=== PATIENT | male | born 1970 | race Caucasian/White ===

== ENCOUNTER 2019-09-29 08:23 | Outpatient (CLI) | payer OTHER, SELFPAY ==
--- NOTE | 2019-09-29 | EST_ITS ---
Patient Info Name: Paul Huang Age: 49 years : 1970 Gender: Male Ht: 72 in Wt: 230 lbs BSA: 2.33 m2 Exam Date: 09/29/2019 8:59 AM Exam Location: [facility] Stress Patient Status: Outpatient Admit Date: 09/29/2019 Staff Ordering Physician: Rogers, Philip Amaya MD Attending Provider: Rogers, Philip Amaya MD Exercise Technologist: Madiha Pino RDCS Nurse: Misti Solomon ANP, ACNP-BC Exam Type: CA stress test treadmill Study Info A treadmill exercise stress test was performed. Summary 1. Normal sinus rhythm - normal ECG. 2. No abnormal ST/T wave changes with exercise. 3. Clinically and electrocardiographically negative exercise stress test at 106% of maximum age predicted heart rate. Protocol: [facility] Stress ECG Details Stage: REST Duration (min): 10 min : 13 sec Speed (mph): 0.0 Grade (%): 0 HR (bpm): 73 SBP (mmHg): 115 DBP (mmHg): 75 METS: --- Stage: REST Duration (min): 16 min : 56 sec Speed (mph): 0.0 Grade (%): 0 HR (bpm): 65 SBP (mmHg): 115 DBP (mmHg): 75 METS: --- Stage: STAGE 1 Duration (min): 1 min : 0 sec Speed (mph): 1.7 Grade (%): 10 HR (bpm): 107 SBP (mmHg): 115 DBP (mmHg): 75 METS: --- Stage: STAGE 1 Duration (min): 2 min : 0 sec Speed (mph): 1.7 Grade (%): 10 HR (bpm): 104 SBP (mmHg): 115 DBP (mmHg): 75 METS: --- Stage: STAGE 1 Duration (min): 3 min : 0 sec Speed (mph): 1.7 Grade (%): 10 HR (bpm): 108 SBP (mmHg): 162 DBP (mmHg): 85 METS: --- Stage: STAGE 2 Duration (min): 1 min : 0 sec Speed (mph): 2.5 Grade (%): 12 HR (bpm): 122 SBP (mmHg): 162 DBP (mmHg): 85 METS: --- Stage: STAGE 2 Duration (min): 2 min : 0 sec Speed (mph): 2.5 Grade (%): 12 HR (bpm): 130 SBP (mmHg): 166 DBP (mmHg): 92 METS: --- Stage: STAGE 2 Duration (min): 3 min : 0 sec Speed (mph): 2.5 Grade (%): 12 HR (bpm): 131 SBP (mmHg): 166 DBP (mmHg): 92 METS: --- Stage: STAGE 3 Duration (min): 1 min : 0 sec Speed (mph): 3.4 Grade (%): 14 HR (bpm): 146 SBP (mmHg): 225 DBP (mmHg): 72 METS: --- Stage: STAGE 3 Duration (min): 2 min : 0 sec Speed (mph): 3.4 Grade (%): 14 HR (bpm): 158 SBP (mmHg): 203 DBP (mmHg): 81 METS: --- Stage: STAGE 3 Duration (min): 3 min : 0 sec Speed (mph): 3.4 Grade (%): 14 HR (bpm): 164 SBP (mmHg): 193 DBP (mmHg): 67 METS: --- Stage: STAGE 4 Duration (min): 1 min : 0 sec Speed (mph): 4.2 Grade (%): 16 HR (bpm): 175 SBP (mmHg): 193 DBP (mmHg): 67 METS: --- Stage: STAGE 4 Duration (min): 1 min : 23 sec Speed (mph): 4.2 Grade (%): 16 HR (bpm): 180 SBP (mmHg): 193 DBP (mmHg): 67 METS: --- Stage: RECOVERY Duration (min):
== END 2019-09-29 08:24 | disposition home or self-care (01) ==
PROVIDERS: PCP Family Medicine; Visit Provider Family Medicine
DX: R07.89 Other chest pain (principal)
CPT/HCPCS: 93017

== ENCOUNTER 2022-09-04 00:23 | Day surgery (SDC) | payer OTHER, SELFPAY ==
[2022-08-17 13:05] VITALS: BMI 30.7
--- NOTE | 2022-09-03 12:57 | PM.HPGS ---
History of Present Illness History of Present Illness Consent: Risks, benefits, and alternatives have been discussed and questions answered. Patient agrees to proceed with procedure. Chief complaint: neoplasm screening, GERD Narrative: Paul Huang Jr. is a 52 year old male Referred for EGD and colonoscopy. He has chronic acid reflux symptoms, Beginning about 30 years ago. His symptoms are generally controlled with Protonix. He is also in need of colon cancer screening. Review of Systems Review of Systems: All systems reviewed & are unremarkable except as noted in HPI and below PMFSH Past Medical History Medical History GERD (gastroesophageal reflux disease) Hyperlipidemia Obesity Social History Social History Alcohol intake: current Drinks per week: 14 Living arrangements: with family Spiritual care concerns: No Meds Home Medications and Allergies Home Medications Medication Instructions Recorded Confirmed Type atorvastatin 20 mg tablet 20 mg PO DAILY 08/17/22 08/17/22 History pantoprazole 40 mg tablet,delayed 40 mg PO QAM 08/17/22 08/17/22 History release Allergies Allergy/AdvReac Type Severity Reaction Status Date / Time No Known Allergies Allergy Verified 09/04/22 10:38 Exam Const: General: alert Orientation/consciousness: patient oriented x3 Resp: Auscultation: clear to auscultation bilaterally Cardio: Rhythm: regular rhythm GI: GI Palp: Yes Soft to palpation and No Tenderness to palpation present (GI) Neuro: General: patient oriented x3 Assessment and Plan Assessment and plan (1) GERD (gastroesophageal reflux disease): Code(s): K21.9 - Gastro-esophageal reflux disease without esophagitis Status: Acute Assessment and Plan: EGD with possible biopsy or dilatation or cautery. (2) Colon cancer screening: Code(s): Z12.11 - Encounter for screening for malignant neoplasm of colon Status: Acute Assessment and Plan: Colonoscopy with possible biopsy or polypectomy or cautery or injection of substances.
[2022-09-04 10:39] VITALS: BP 133/90; PULSE 78; RESP 18; TEMP 36.2; O2SAT 97
--- NOTE | 2022-09-04 10:41 | P.PNAN_ITS ---
Anes - Initial Pre Proc Eval Procedure: Operation Date: 09/04/22 12:30 Proposed Procedures p Esophagogastroduodenoscopy & Screening Colonoscopy - Umang Wadsworth MD Date/Time: 09/04/22 10:41 Surgeon: Umang Wadsworth MD Pre Op Diagnosis: neoplasm screening, GERD Patient Data Age: 52 Gender: M Height: 1.8 m Weight: 102.7 kg Last Vital Signs Temp 36.2 C L 09/04/22 10:39 Pulse 78 09/04/22 10:39 Resp 18 09/04/22 10:39 BP 133/90 09/04/22 10:39 Pulse Ox 97 09/04/22 10:39 O2 Del Method Room Air 09/04/22 10:39 Allergies Allergy/AdvReac Type Severity Reaction Status Date / Time No Known Allergies Allergy Verified 09/04/22 10:38 Home Medications Medication Instructions Recorded Confirmed Type atorvastatin 20 mg tablet 20 mg PO DAILY 08/17/22 08/17/22 History pantoprazole 40 mg tablet,delayed 40 mg PO QAM 08/17/22 08/17/22 History release Patient hx anesthesia problems: none Family hx anesthesia problems: none Results Review: All pre-operative results and documents have been reviewed as part of the pre- operative evaluation. [facility] Past Medical History Medical History (Updated 09/04/22 @ 11:00 by Simon Morgan MD) GERD (gastroesophageal reflux disease) Hyperlipidemia Obesity Social History Social History Alcohol intake: current Drinks per week: 14 Living arrangements: with family Spiritual care concerns: No Anes - Eval Final PreProcedure Day of Procedure 09/04/22 10:41 Patient weight: obese Heart: regular rate and rhythm Lungs: clear to auscultation and normal air movement Airway: Mallampati scale class II Neurological: alert and oriented Last oral intake: >/= 8 hours ASA classification: III Emergent: no Anesthetic plan: proceed Anesthesia type and monitoring: general GIVS Results Review: All pre-operative results and documents have been reviewed as part of the pre- operative evaluation. Informed Consent: The patient's anesthetic plan and its attendant risks and benefits were discussed with the patient/family/POA. Questions were solicited and answers provided to the satisfaction of the patient/family/POA.
[2022-09-04] MEDS: LACTATED RINGERS 1,000 ML 150 ML IV CONT (10:51)
--- NOTE | 2022-09-04 12:58 | SUR.OPER ---
EGD START: 1233; END: 1237. COLONOSCOPY START: 1245; END: 1257.
[2022-09-04 13:01] VITALS: BP 107/62; PULSE 80; RESP 20; O2SAT 98
[2022-09-04 13:11] VITALS: BP 108/60; PULSE 72; RESP 20; O2SAT 99
[2022-09-04 13:21] VITALS: BP 116/72; PULSE 74; RESP 20; O2SAT 100
== END 2022-09-04 13:35 | disposition home or self-care (01) ==
PROVIDERS: PCP Family Medicine; Visit Provider Internal Medicine Gastroenterology
PROC: 0DJ08ZZ Inspection of Upper Intestinal Tract, Via Natural or Artificial Opening Endoscopic (ICD-10-PCS; CPT 43235; principal; 2022-09-04 12:30)
DX: Z12.11 Encounter for screening for malignant neoplasm of colon (principal); D12.5 Benign neoplasm of sigmoid colon; K57.30 Diverticulosis of large intestine without perforation or abscess without bleeding; K21.9 Gastro-esophageal reflux disease without esophagitis; K44.9 Diaphragmatic hernia without obstruction or gangrene; K31.7 Polyp of stomach and duodenum; E78.5 Hyperlipidemia, unspecified; E66.9 Obesity, unspecified; Z68.31 Body mass index [BMI] 31.0-31.9, adult
CPT/HCPCS: 45385; 43239; 88305; J2704; J7120